=== PATIENT | female | born 1975 | race Caucasian/White ===

== ENCOUNTER → 2021-12-23 16:13 | Outpatient (CLI) | payer BC, SELFPAY ==
--- NOTE | ~2021-12-23 | XR_ITS ---
EXAMINATION: XR lumbar spine 2-3V DATE: 12/23/2021 16:34 INDICATION: Radiculopathy TECHNIQUE: Anteroposterior and lateral views of the lumbar spine, and cone-down lateral view of the l umbosacral junction were obtained. COMPARISON: None. FINDINGS: There are changes of laminectomy posterior fusion from L3 through L5. Bone alignment is nor mal. There is no fracture. There is mild loss of intervertebral disc space height in the lumbar spine . The vertebral body heights are normal. A moderate volume of colonic stool is present. IMPRESSION: 1. Mild lumbar spondylosis. Reviewed, dictated and finalized at location A. IMPRESSION: 1. Mild lumbar spondylosis.
== END ==
PROVIDERS: PCP Family Medicine; Visit Provider Family Medicine
DX: M47.26 Other spondylosis with radiculopathy, lumbar region (principal)
CPT/HCPCS: 72100

== ENCOUNTER → 2022-12-11 17:01 | Outpatient (CLI) | payer BC, SELFPAY ==
--- NOTE | ~2022-12-11 | XR_ITS ---
Lumbosacral Spine: AP and lateral views Clinical History: Pain COMPARISON: 12/23/2021 Findings: There is stable posterior fusion hardware from L3 through L5, with bilateral rods and trans pedicular screws present. Osseous and orthopedic hardware alignment is unchanged. Remaining disc spac es are preserved. The intervertebral disc spaces are preserved. The sacroiliac joints are normally o utlined. Impression: No acute abnormality. Stable posterior fusion changes from L3 through L5. Reviewed, dictated and finalized at location . Impression: No acute abnormality. Stable posterior fusion changes from L3 through L5.
== END ==
PROVIDERS: PCP Family Medicine; Visit Provider Family Medicine
DX: M54.50 Low back pain, unspecified (principal); Z98.1 Arthrodesis status
CPT/HCPCS: 72100

== ENCOUNTER → 2023-09-14 11:29 | Outpatient (CLI) | payer BC, SELFPAY ==
--- NOTE | ~2023-09-14 | MM_ITS ---
EXAMINATION: MM screening emmy BI w moy HISTORY: Screening mammogram, family history of breast cancer in her mother. TECHNIQUE: Craniocaudal and mediolateral oblique 3-D tomosynthesis images were obtained and synthetic 2-D images were generated. CAD analysis was submitted and interpreted. COMPARISON: 09/30/2015 BREAST PARENCHYMAL COMPOSITION: There are scattered areas of fibroglandular density. FINDINGS: No suspicious mass, calcification, or architectural distortion are identified in either evelia ast to suggest malignancy. There has been no suspicious interval change. IMPRESSION: 1. No mammographic evidence of malignancy. 2. Recommend routine screening mammography in one year. BI-RADS Category 1: Negative Reviewed, dictated and finalized at location A. RIDER
== END ==
PROVIDERS: PCP Family Medicine; Visit Provider Family Medicine
DX: Z12.31 Encounter for screening mammogram for malignant neoplasm of breast (principal); N63.10 Unspecified lump in the right breast, unspecified quadrant
CPT/HCPCS: 77063; 77067